=== PATIENT | male | born 1950 | race Caucasian/White ===

== ENCOUNTER 2020-12-25 09:06 | Day surgery (SDC) | payer MEDICARE ==
--- OUTSIDE RECORDS SUMMARY | 2020-11-27 13:41 | XMSREPORT | Referral Summary ---
:1950 Author Organization [facility] s Address [address] [place] [address] Care Team Providers Name Role Phone Provider, Attributed RESOURCE Attributed Provider Unavailab Roselia Mcbride PA-C Primary Care Provider Reason for Referral Transitions of Care (Routine) Status Reason Specialty Diagnoses / Referred By Referred To Procedures Contact Contact New Request Patient Diagnoses Screening for colon cancer Divya Blood, Health, [facility] [place], [address] [place] [address] [place] [id number] Phone: Fax: Reason for Visit Reason Comments Derm Problem Has developed a bump where p revious area was removed. Encounter Details Date Type Department Care Team Description 11/26/2020 Office Visit [facility] Divya Blood, Routine gene ral medical examination at a health care facility (Primary Dx); [facility] [place] Essential hypertension, benign; [address] [address] Benign prostatic hyperplasia with lower urinary tract symptoms, symptom details unspecified; [place] [address] [address] [address] Pure hypercholesterolemia; [phone] [place], [place] Bilateral carot id artery stenosis; [address] Gastroesophageal reflux disease without esophagitis; [phone] Screening for colon cancer Allergies Active Allergy Reactions Severity Noted Date Comments Jacoby Inhibitors Wheezing/Bronchospasm (High), Other High cough (Specify in Comments) Codeine Nausea and Vomiting, Diarrhea 07/08/2011 fatigue Penicillin Hives (High), Rash High 07/08/2011 documented as of this encounter (statuses as of 11/26/2020) Medications Medication Sig Dispensed Refills Start End Date Status Date glucosamine-chondroiti Take by 0 Active n 9971-7903 MG/30ML mouth 2 LIQD times a day. omega-3 fatty acids Take 1,200 0 Active (FISH OIL) 1000 mg mg by mouth capsule 1 time per day Dihydroxyaluminum Sod Take 2 0 Active Carb (ROLAIDS PO) tablets by mouth 1 time per day aspirin 81 mg enteric Take 1 30 tablet 0 Active coated tablet tablet by 3 mouth 1 time per day. blood glucose test 1 time a 0 A ctive strip (FREESTYLE LITE) day as needed. Use to test blood as directed. freestyle lancets MISC 0 Active atenolol (TENORMIN) 50 TAKE 1 90 tablet 3 Active mg tabletIndications: TABLET ONCE 1 Essential DAILY hypertension, benign amLODIPine (NORVASC) TAKE 1 90 tablet 3 Active 10 mg TABLET ONCE 1 tabletIndications: DAILY. Essential hypertension, benign doxazosin (CARDURA) 4 TAKE 1 90 tablet 3 Active mg tabletIndications: TABLET ONCE 1 Benign prostatic DAILY hyperplasia with lower urinary tract symptoms, symptom details unspecified rosuvastatin (CRESTOR) Take 1 90 tablet 3 Active 20 mg tablet (20 1 tabletIndications: mg) by Pure mouth 1 hypercholesterolemia, time per Bilateral carotid day artery stenosis omeprazole (PRILOSEC) TAKE 1 90 capsule 3 Active 20 mg CAPSULE 1 capsuleIndications: ONCE DAILY Gastroesophageal IN THE reflux disease without MORNING esophagitis rosuvastatin (CRESTOR) Take 1 90 tablet 1 0 Discontinued 20 mg tablet (20 1 21 (Reorder) tabletIndications: mg) by Pure mouth 1 hypercholesterolemia, time per Bilateral carotid day artery stenosis omeprazole (PRILOSEC) TAKE 1 90 capsule 1 0 Discontinued 20 mg CAPSULE 1 21 (Reorder) capsuleIndications: ONCE DAILY Gastroesophageal IN THE reflux disease without MORNING esophagitis atenolol (TENORMIN) 50 TAKE 1 30 tablet 0 0 Discontinued mg tabletIndications: TABLET ONCE 1 21 (Reorder) Essential DAILY hypertension, benign amLODIPine (NORVASC) TAKE 1 30 tablet 0 11/27/19 Discontinued 10 mg TABLET ONCE 1 21 (Reorder ) tabletIndications: DAILY. Essential DOSAGE hypertension, benign CHANGE. doxazosin (CARDURA) 4 TAKE 1 30 tablet 0 11/27/19 Discontinued mg tabletIndications: TABLET ONCE 1 21 (Reorder) Benign prostatic DAILY hyperplasia with lower urinary tract symptoms, symptom details unspecified documented as of this encounter (statuses as of 11/26/2020) Active Problems Problem Noted Date Obesity with body mass index of 30.0-39.9 11/24/2018 Bilateral carotid artery stenosis 01/03/2017 Overview: Per ultrasound 12/2016 - 50-69% bilateral . Started statin (Crestor). ED (erectile dysfunction) 11/27/2014 Pre-diabetes 12/18/2012 Benign prostatic hyperplasia with lower urinary tract symptoms 11/27/2010 Malignant neoplasm of skin of parts of face 01/06/2007 Essential hypertension 12/27/2002 Pure hypercholesterolemia Esophageal reflux documented as of this encounter (statuses as of 11/26/2020) Immunizations Name Administration Dates Next Due Moderna COVID-19 Vaccine 07/11/2020, 06/13/2020 Pneumococcal Conj PCV13 11/24/2018 Pneumococcal Polysaccharide PPSV23 11/26/2019, 11/20/2013 TDAP 11/14/2008 Td(adult)preservative free 11/27/2018 Zoster Live(Zostavax) 12/18/2013 Zoster Recombinant (Shingrix) 11/26/2019, 12/19/2018 documented as of this encounter Social History Tobacco Use Types Packs/Day Years Used Date Never Smoker Smokeless Tobacco: Never Used Alcohol Use Standard Drinks/Week Comments Yes .[id number] (1 standard drink = 0.6 oz scotch 3-5 per week pure alcohol) Alcohol Habits Answer Date Recorded How often do you have a drink containing alcohol? Not asked How many drinks containing alcohol do you have on Not asked a typical day when you are drinking? How often do you have six or more drinks on one Not asked occasion? Comment: scotch 3-5 per week 12/30/2016 Physical Activity Answer Date Recorded On average, how many days per week do you engage in moderate to 7 days 11/26/2019 strenuous exercise (like walking fast, running, jogging, dancing, swimming, biking, or other activities that cause a light or heavy sweat)? On average, how many minutes do you engage in exercise at th is 60 min 11/26/2019 level? Sexually Active Control Partners Comments Yes Female Sex Assigned at Date Recorded Not on file documented as of this encounter Last Filed Vital Signs Vital Sign Reading Time Taken Comments Blood Pressure 132/70 11/26/2020 7:30 AM CDT Pulse 60 11/26/2020 7:30 AM CDT Temperature - - Respiratory Rate - - Oxygen Saturation 97% 11/26/2020 7:30 AM CDT Inhaled Oxygen Concentration - - Weight 90.3 kg (199 lb) 11/26/2020 7:30 AM CDT Height - - Body Mass Index 32.12 11/24/2018 7:39 AM CDT documented in this encounter Functional Status Functional Status Response Date of Assessment Is the person deaf or does he/she have serious difficulty No 12/30/2016 hearing? Is this person blind or does he/she have difficulty No 12/30/2016 seeing even when wearing glasses? Do you have difficulty with walking, balance, climbing No 11/26/2020 stairs, or had a fall in the last 3 months? Does the patient have difficulty dressing or bathing? No 12/30/2016 Because of a physical, mental, or emotional condition; No 12/30/2016 does this person have difficulty doing errands alone such as visiting a doctor's office or shopping? Cognitive Status Response Date of Assessment Because of a physical, mental, or emotional condition; No 12/30/2016 does this person have serious difficulty concentrating, remembering, or making decisions? documented as of this encounter Patient Instructions Patient InstructionsDivya Blood PA-C - 11/26/2020 7:46 AM CDT Cholesterol was excellent. Continue your rosuvastatin without changes. Lab Results Component Value Date CHOLESTEROL 124 11/24/2020 HDLCHOL 41 11/24/2020 LDL 63 11/24/2020 TRIGLYCERIDE 100 11/24/2020 BP was good today. Continue to monitor this closely. Very loose goal for BP <140/90. For now, continue your medications without changes. BP Readings from Last 3 Encounters: 11/26/20 132/70 11/26/19 134/68 11/24/18 136/78 We will get you set up for a colonoscopy in [place]. documented in this encounter Plan of Treatment Name Type Priority Associated Diagnoses Order [facility] REFERRAL Referral Routine Screening for colon Order ed: 11/26/2020 ENDOSCOPY NON ONE CHART cancer documented as of this encounter Goals Goal Patient Goal Associated Recent Patient-Stated? Author Type Problems Progress LIFESTYLE - Exercise No [place], EXERCISE, walk [place] F, 15-20 minutes RN, CDE 3-5 days a week. LIFESTYLE - Lifestyle No [place], CHECK BLOOD Brook F, SUGAR twice RN, CDE daily, fasting and 2 hours after a meal. documented as of this encounter Visit Diagnoses Diagnosis Routine general medical examination at a health care facility - Primary Essential hypertension, benign Benign prostatic hyperplasia with lower urinary tract symptoms, symptom details unspecified Pure hypercholesterolemia Bilateral carotid artery stenosis Occlusion and stenosis of multiple and b ilateral precerebral arteries without mention of cerebral infarction Gastroesophageal reflux disease without esophagitis Esophageal reflux Screening for colon cancer Special screening for malignant neoplasm s, colon documented in this encounter
[~2020-12-25 09:06] MED LIST: Midazolam 1 MG/ML 2 ML SDV ONE; Propofol 200 MG/20 ML SDV ONE
[2020-12-25] MEDS ORDERED: Sodium Chloride 0.9% 10 ML Syringe FLUSH PRN (09:15)
[2020-12-25] MEDS ORDERED: Lactated Ringers 1,000 ML IV SCH (09:15)
[2020-12-25] MEDS ORDERED: Propofol 200 MG/20 ML SDV ONE (10:30)
[2020-12-25] MEDS ORDERED: Midazolam 1 MG/ML 2 ML SDV ONE (10:30)
--- NOTE | 2020-12-25 10:30 | PCM.HPR ---
H & P Addendum review - H & P Addendum Review Date of Original H & P: 11/26/20 Date Reviewed: 12/25/20 Time Reviewed: 10:30 Patient was Examined: No Changes
--- NOTE | 2020-12-25 10:46 | PCM.OPNOTE ---
- General Post-Op/Procedure Note Date of Surgery/Procedure: 12/25/20 Operative Procedure(s): Colonoscopy Findings: tics Pre Op Diagnosis: Screening Post-Op Diagnosis: Same Anesthesia Technique: GONZALEZ Primary Surgeon: Raheel Cowart Anesthesia Provider: Atiya Gandhi Complications: None Condition: Good
--- NOTE | 2020-12-26 08:21 | OR ---
Date of Procedure: 12/25/2020 PREOPERATIVE DIAGNOSIS: Colon screening. POSTOPERATIVE DIAGNOSIS: Diverticulosis. PROCEDURE: Colonoscopy. ANESTHESIA: IV sedation. PROCEDURE IN DETAIL: The patient was brought to the procedure room where he was placed on his left side and IV sedation administered. Digital rectal exam was performed, which was normal. Colonoscope was inserted and advanced to the level of the cecum without difficulty. Cecal position was confirmed by identifying the appendiceal lumen and ileocecal valve. Prep was good and surfaces were well visualized. Upon withdrawing the scope, the ascending and transverse colon were normal. Sigmoid colon and descending colon had multiple diverticula present. Rectum was normal and retroflexion was normal. Air was removed and the scope withdrawn. Patient tolerated the procedure well and returned to recovery in stable condition. No further colon screening is necessary due to patient's age. DANISHA KENNEDY MD /[id number]
== END 2020-12-25 11:48 | disposition home or self-care (01) ==
LOC: LL.SDS 09:06
PROVIDERS: ATTEND Surgery
DX: Z12.11 Encounter for screening for malignant neoplasm of colon (principal); K57.30 Diverticulosis of large intestine without perforation or abscess without bleeding; I10 Essential (primary) hypertension; N40.1 Benign prostatic hyperplasia with lower urinary tract symptoms; E78.00 Pure hypercholesterolemia, unspecified; I65.23 Occlusion and stenosis of bilateral carotid arteries; K21.9 Gastro-esophageal reflux disease without esophagitis; E78.5 Hyperlipidemia, unspecified; E66.9 Obesity, unspecified; Z79.899 Other long term (current) drug therapy; Z68.32 Body mass index [BMI] 32.0-32.9, adult; Z88.0 Allergy status to penicillin; Z88.5 Allergy status to narcotic agent; Z88.8 Allergy status to other drugs, medicaments and biological substances
CPT/HCPCS: 00812; G0121; J2250; J2704; J7120